=== PATIENT | male | born 1985 ===

== ENCOUNTER 2017-05-04 07:23 | Outpatient (CLI) | payer OTHER ==
[~2017-05-04] VITALS: Ht 152.4 cm; Wt 93.0 kg
== END 2017-05-04 07:40 | disposition home or self-care (01) ==
LOC: OFIC 805 07:23
DX: J31.0 Chronic rhinitis (principal); J34.2 Deviated nasal septum; J34.3 Hypertrophy of nasal turbinates; J32.8 Other chronic sinusitis